=== PATIENT | female | born 1935 | race Caucasian/White ===

== ENCOUNTER → 2016-09-27 | Outpatient (CLI) | payer MEDICARE ==
[2016-09-27 14:24] LABS: ANION GAP 16.3 MEQ/L (3-15); CALCULATED IONIZED CALCIUM 3.9 mg/dL (3.8-4.6); TOTAL PROTEIN 7.2 g/dL (6.4-8.5)
== END ==
LOC: LAB 13:59
PROVIDERS: ATTEND Family Medicine
DX: I10 Essential (primary) hypertension (principal)
CPT/HCPCS: 36415; 80053

== ENCOUNTER → 2016-10-02 | Outpatient (CLI) | payer MEDICARE | LOC: RAD 16:23 | PROVIDERS: ATTEND Family Medicine | DX: M54.16 Radiculopathy, lumbar region (principal) | CPT/HCPCS: 72158; A9579 ==

== ENCOUNTER → 2016-12-22 | Outpatient (REF) | payer MEDICARE ==
[~2016-12-22] MED LIST: AC325T GT; ACHYD1T PO; AMT25T PO; ASPI-586 PO; ATOR20TA PO; ATOR40TA59 PO; CALC-172 PO; CTLP20T PO; CYCL10TA45 PO; CYCL5TAB PO; ESCI10TA49 PO; FENO145T2 PO; FENT1PAT9 TD; FNT25TD TD; FOLI0.8T PO; GABA800T2 PO; GABA800T9 PO; HCT25T PO; MELO-255 PO; METF500T4 PO; METO-270 PO; METO-272 PO; METO25TA60 PO; MIRALAX 17 GM P17 GM PO; MTP50T PO; MULT-110 PO; NFLOSA25TA PO; OMEP-114 PO; OMEP10CA4 PO; SULF-221 PO
[2016-12-22 16:03] LABS: ALBUMIN 3.8 g/dL (3.4-5.0); ANION GAP 16.2 MEQ/L (3-15); CALCULATED IONIZED CALCIUM 4.2 mg/dL (3.8-4.6); TOTAL PROTEIN 6.7 g/dL (6.4-8.5)
== END ==
LOC: LAB 14:23
PROVIDERS: ATTEND Family Medicine
DX: D64.89 Other specified anemias (principal); E11.9 Type 2 diabetes mellitus without complications; I25.10 Atherosclerotic heart disease of native coronary artery without angina pectoris; I10 Essential (primary) hypertension
CPT/HCPCS: 80053; 83036; 83721

== ENCOUNTER → 2017-01-16 | Outpatient (REF) | payer MEDICARE ==
[~2017-01-16] MED LIST changes: +OXYC1TAB6 PO
[2017-01-16 16:30] LABS: BASOPHILS % (AUTO) 0 % (0-2); EOSINOPHILS # (AUTO) 0.2 10^3uL; EOSINOPHILS % (AUTO) 3 % (0-4); LYMPHOCYTES # (AUTO) 1.3 X10^3; MEAN CORPUSCULAR HGB CONC 33.1 g/dL (31.0-37.0); MEAN CORPUSCULAR VOLUME 91 FL (80-100); MEAN PLATELET VOLUME 11.2 FL (6.0-9.5); MONOCYTES # (AUTO) 0.6 X10^3; MONOCYTES % (AUTO) 9 % (3-11); NEUTROPHILS # (AUTO) 4.6 X10^3; NEUTROPHILS % (AUTO) 69 % (51-67); PLATELET COUNT 177 10^3uL (150-450); WHITE BLOOD COUNT 6.67 10^3uL (4.0-11.0)
== END ==
LOC: LAB 16:17
PROVIDERS: ATTEND Family Medicine
DX: R55 Syncope and collapse (principal)
CPT/HCPCS: 85025

== ENCOUNTER → 2017-01-17 | Outpatient (CLI) | payer MEDICARE ==
--- NOTE | 2017-01-17 14:51 | Diagnostic Imaging Report ---
PROCEDURE: CT pelvis without contrast. TECHNIQUE: Multiple contiguous axial images were obtained through the pelvis without the use of intravenous contrast. Sagittal and coronal reformations were performed. INDICATION: Persistent hip pain after fall. COMPARISON: Pelvic radiographs of 01/15/17. FINDINGS: There is a nondisplaced transverse fracture through the lateralmost aspect of the right superior pubic ramus near its junction with the acetabulum. There is no intra-articular extension of the fracture line into the acetabular articular surface. There is also a minimally comminuted fracture of the inferior right pubic ramus in its midportion. No fracture of the left pubic rami. No diastasis of the SI joints or symphysis pubis. No sacral insufficiency fracture. Moderate degenerative changes of the bilateral SI joints. Prior laminectomy at L5 with hypertrophic degenerative changes at the bilateral lower lumbar facets. No free pelvic fluid or evidence of pelvic hematoma. There is fatty atrophy of the bilateral gluteus medius and minimus tendons likely due to chronic tears of the distal insertional fibers versus disuse. There is no acute fracture of the proximal right femur. There is a small amount of fluid in the right peritrochanteric region below the tensor fascia atul which may represent a small amount of posttraumatic bursitis. IMPRESSION: 1. Acute, nondisplaced fractures of the right superior and inferior pubic rami. 2. No fracture of the proximal right femur. 3. Small volume of fluid in the right peritrochanteric region likely represents a small amount of posttraumatic bursitis. 4. No pelvic hematoma. Dictated by: Dictated on workstation # [id number]
--- NOTE | 2017-01-17 14:55 | Diagnostic Imaging Report ---
PROCEDURE: CT right lower extremity without contrast. TECHNIQUE: Axially acquired CT was obtained through the right lower extremity without intravenous contrast. Coronal and sagittal reformations were also performed. INDICATION: Persistent hip pain after fall. COMPARISON: CT pelvis performed concurrently. FINDINGS: There are acute nondisplaced fractures of the right superior and inferior pubic rami which are more completely detailed on CT pelvis report. There is no acute fracture of the proximal right femur. Specifically, there is no femoral neck fracture, intertrochanteric fracture or avulsion fracture of the greater trochanter. Small volume of peritrochanteric fluid likely represents a posttraumatic trochanteric bursitis. Fatty atrophy of the right gluteus medius and minimus muscles is likely due to chronic tendon tear and/or disuse. IMPRESSION: 1. Acute nondisplaced fractures of the right superior and inferior pubic rami. 2. No acute fracture of the proximal right femur. 3. Small volume of fluid adjacent to the right trochanter is likely due to posttraumatic bursitis. Findings of acute fracture were called to Dr. Coronado's nurse Kiley at 2:45 PM on 01/17/17. Dictated by: Dictated on workstation # [id number]
== END ==
LOC: RAD 14:00
PROVIDERS: ATTEND Family Medicine
DX: M25.551 Pain in right hip (principal); S32.591A Other specified fracture of right pubis, initial encounter for closed fracture; W19.XXXA Unspecified fall, initial encounter
CPT/HCPCS: 72192; 73700

== ENCOUNTER → 2017-01-30 | Outpatient (CLI) | payer MEDICARE ==
--- NOTE | 2017-01-30 18:04 | Diagnostic Imaging Report ---
Indication: Right shoulder pain. Exam: AP, transscapular, and oblique views of the right shoulder are obtained. Findings: There is severe degenerative change of the glenohumeral joint with marked joint space narrowing, subchondral sclerosis and osteophyte formation. There is minimal distance between the acromion and humeral head suggesting rotator cuff pathology. There is marked degenerative change of the AC joint. There is an impacted humeral neck fracture which is of uncertain age. Overall appearance has not changed compared to the prior study. 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 There is an impacted humeral neck fracture which is of unclear age and has not changed from 01/15/17. Dictated by: Dictated on workstation # [id number]
== END ==
LOC: RAD 14:25
PROVIDERS: ATTEND Family Medicine
DX: S42.251D Displaced fracture of greater tuberosity of right humerus, subsequent encounter for fracture with routine healing (principal); M19.011 Primary osteoarthritis, right shoulder; X58.XXXD Exposure to other specified factors, subsequent encounter
CPT/HCPCS: 73030